=== PATIENT | male | born 1985 | race Two or more races ===

== ENCOUNTER 2020-07-15 08:54 | Outpatient (REF) | payer OTHER, SELFPAY | END 2020-07-15 08:55 | disposition home or self-care (01) | LOC: HO.LAB 08:54 | PROVIDERS: Visit Provider Internal Medicine | DX: Z20.822 Contact with and (suspected) exposure to COVID-19 (principal) | CPT/HCPCS: C9803; U0003; U0005 ==

== ENCOUNTER 2023-11-27 18:49 | Emergency (ER) | payer OTHER, SELFPAY ==
--- NOTE | ~2023-11-27 | XR_ITS ---
EXAMINATION: XR ANKLE, RIGHT CLINICAL INFORMATION: Right ankle pain. COMPARISON: None available. TECHNIQUE: AP, lateral, and mortise views of the right ankle. FINDINGS: No fracture. Alignment is anatomic. No erosions. Joint spaces are maintained. Soft tissues are normal. XR/XR ankle RT min 3V IMPRESSION: Normal right ankle. Electronically signed by: Ahsan Maldonado MD 11/27/2023 08:45 PM EDT
--- NOTE | ~2023-11-27 | XR_ITS ---
EXAMINATION: XR FOOT, RIGHT CLINICAL INFORMATION: Right foot pain COMPARISON: None available. TECHNIQUE: AP, lateral, and oblique views of the right foot. FINDINGS: The bones and soft tissues are normal. No fracture. Alignment is anatomic. Joint spaces are maintained. XR/XR foot RT min 3V IMPRESSION: Normal right foot. Electronically signed by: Ahsan Maldonado MD 11/27/2023 08:45 PM EDT RP
--- NOTE | 2023-11-27 19:40 | ED.GENADULT ---
HPI - General Adult General Chief complaint: Extremity Injury, Lower Stated complaint: felt pop in heel Time Seen by Provider: 11/27/23 21:59 Source: patient and RN notes reviewed Mode of arrival: ambulatory Limitations: no limitations History of Present Illness ED Provider: Ralph LOPEZ narrative: 38-year-old male presents for evaluation of right lower leg pain. Patient reports that about 30 minutes prior to arrival he was playing basketball and felt a pop in his right lower leg He reports that he was pushing off his right foot and he felt a pop in his right heel that radiated up into the back of his right knee. He has pain to the right lower leg and calf area. He is unable to move his right foot very well He did not fall or have any traumatic injury No other complaints or concerns at this time Related Data Previous Rx's ?Medication ?Instructions ?Recorded ibuprofen 600 mg tablet 600 mg PO Q6H PRN pain #20 tabs 11/27/23 oxycodone 5 mg tablet 5 mg PO Q6H PRN severe pain (scale 11/27/23 score 7-10) #20 tabs Allergies Allergy/AdvReac Type Severity Reaction Status Date / Time No Known Allergies Allergy Unverified 11/27/23 19:45 Review of Systems Constitutional: Constitutional: Denies body ache(s), Denies chills and Denies fever(s) Musculoskeletal: Musculoskeletal: Reports limited range of motion and Reports stiffness PMFSH Social History Social History Advance Directives: No Advance Directives Information Provided: No Do you have a plan to hurt others: No Plan Physical Exam ED Vital Signs: Vital Signs - 24 hr 11/27/23 19:43 11/27/23 21:40 Temperature 98.8 F 98.4 F Pulse Rate 88 84 Respiratory Rate 16 20 Blood Pressure 128/79 128/80 Pulse Oximetry 99 100 Oxygen Delivery Method Room Air Room Air BMI result Body Mass Index 33.9 Const General: healthy appearing, comfortable, no acute distress, alert and awake Nutritional Appearance: well nourished Orientation/consciousness: patient oriented x3 HENMT Head: Yes normocephalic and Yes atraumatic Neck Neck: Yes full ROM Resp Effort & Inspection: normal respiratory effort, able to speak in complete sentences and not labored Skin General skin exam: elasticity normal Neuro General: patient oriented x3 Cranial nerves: Yes Bilaterally intact EOM present Cognition (Neuro): normal cognition Extrem Other: Patient has a bogginess on palpation of his right Achilles tendon region. He has tenderness with palpation up the right posterior calf. The patient is unable to plantar flex or dorsiflex the right foot. There is no right knee edema or tenderness. There are no open wounds Course Course Course Narrative: This is an RME done by DANNY Vázquez: Additional HPI, ROS, PE not included below will be deferred to primary provider. 38 year old M presenting after feeling a pop in R heel earlier today when he was playing basketball around 0700pm today. Denies any recent antibiotic usage. Plan - imaging Appearance: Alert.? Oriented X3.? No acute cardiopulmonary distress distress.? Head: Normocephalic, atraumatic, no step-offs or deformities Neck: Normal inspection.? Neck supple.? CVS: Pulses normal.? Respiratory: No respiratory distress.? Abdomen: Soft and nontender.? Skin: ? Normal skin color. Extremities: 5/5 strength to bilateral upper and lower extremities Neuro: Oriented X 3.? No motor deficit.? No sensory deficit. Procedures Orthopedic Splinting/Casting Injury #1: Side: right Lower Extremity Injury Location: lower leg Lower Extremity Immobilizer: posterior splint Other Orthopedic Equipment: crutches Additional Comments: Patient tolerated the procedure well, post procedure, neurovascular status remains intact. Medical Decision Making Medical Decision Making MDM Narrative: History exam is most consistent with an Achilles tendon rupture. Patient placed in posterior walking splint and was instructed to be nonweightbearing. He will follow up with Orthopedics Differential Diagnosis Differential Diagnoses: The differential diagnosis associated with the presentation includes Calf strain Achilles tendon rupture Gastrocnemius rupture Muscle strain Radiology Impression Discussion of test interpretation with radiology: I have reviewed the radiologist's reading. Radiologist Impression: XR/XR ankle RT min 3V IMPRESSION: Normal right ankle. Electronically signed by: Ahsan Maldonado MD 11/27/2023 08:45 PM EDT RP XR/XR foot RT min 3V IMPRESSION: Normal right foot. Electronically signed by: Ahsan Maldonado MD 11/27/2023 08:45 PM EDT RP Discharge Plan Discharge Clinical Impression: Rupture of right Achilles tendon Patient Disposition: Home, Self-Care Instructions: Achilles Tendon Rupture (ED), R.I.C.E. Treatment (ED) Additional Instructions: Your x-rays did not show any abnormalities. Your physical exam was very concerning for an Achilles tendon rupture You should be nonweightbearing until you are cleared by orthopedics, the number was provided Call tomorrow morning to schedule an appointment You may follow-up with your own orthopedist if you wish Use ibuprofen/Tylenol for pain. You may use oxycodone for more severe, breakthrough pain This may make you sleepy, did not drink alcohol or drive after taking it Prescriptions: New ibuprofen 600 mg tablet 600 mg PO Q6H PRN (Reason: pain) Qty: 20 0RF oxycodone 5 mg tablet 5 mg PO Q6H PRN (Reason: severe pain (scale score 7-10)) Qty: 20 0RF Rx Instructions: Partial Fill upon patient request. Stand Alone Forms: Work/School Release Print Language: Kinyarwanda
[2023-11-27 19:43] VITALS: BP 128/79; PULSE 88; RESP 16; TEMP 37.1; O2SAT 99; BMI 33.9
[2023-11-27 21:40] VITALS: BP 128/80; PULSE 84; RESP 20; TEMP 36.9; O2SAT 100
[2023-11-27] MEDS: oxyCODONE HCl Immed Release 5 MG TABLET PO (23:05)
[2023-11-27] MEDS: Ibuprofen 600 MG TABLET PO (23:05)
[2023-11-27 23:10] VITALS: BP 128/80; PULSE 84; RESP 20; TEMP 36.9; O2SAT 100
== END 2023-11-27 23:11 | disposition home or self-care (01) ==
PROVIDERS: Emergency Provider Emergency Medicine; PCP Family Medicine
DX: S86.011A Strain of right Achilles tendon, initial encounter (principal); X50.9XXA Other and unspecified overexertion or strenuous movements or postures, initial encounter; Y93.67 Activity, basketball; Y92.310 Basketball court as the place of occurrence of the external cause; Y99.9 Unspecified external cause status
CPT/HCPCS: 73610; 73630; 99283